=== PATIENT | female | born 1990 | race Caucasian/White ===

== ENCOUNTER → 2020-07-24 | Outpatient (CLI) | payer OTHER ==
--- NOTE | 2020-07-24 15:58 | RAD ---
US PELVIS COMPLETE History: Reason: LT SIDED PELVIC PAIN / Spl. Instructions: / History: Comparison: None Technique: Grayscale and color Doppler imaging of the pelvis was performed using transabdominal techn ique. Findings: The uterus measures 6.8 x 6.0 x 4.3 cm. Uterus has an unremarkable appearance. Two nabothian cysts n oted. The endometrial stripe measures 14 mm. Right ovary measures 3.1 x 2.6 x 1.9 cm. Left ovary measures 2.4 x 2.0 x 2.7 cm. Normal Doppler flow to the ovaries. No adnexal masses are seen. IMPRESSION: 1. Unremarkable pelvic ultrasound. Electronically signed by: Son Roth DO (07/24/2020 3:55 PM) [facility]
== END ==
LOC: US 12:54
PROVIDERS: ATTEND Obstetrics & Gynecology
DX: N88.8 Other specified noninflammatory disorders of cervix uteri (principal)
CPT/HCPCS: 76856